=== PATIENT | female | born 1950 | race Caucasian/White ===

== ENCOUNTER 2016-12-08 11:13 | Day surgery (SDC) | payer OTHER ==
[~2016-12-08] VITALS: Ht 156.2 cm; Wt 59.7 kg
[~2016-12-08 11:13] MED LIST: CHOL500045 PO; DENO120V SC; FOLI20CA PO; LEVO100T PO; LEVO500T11 PO; LIOT25TA10 PO; METF10002 PO; MULT-658 PO; ROSU5TAB PO; SPIR50TA PO; [UNRECOGNIZED DRUG - CODE] IV
[2016-12-08] MEDS ORDERED: LACTATED RINGERS 1,000 ML IV SCH (11:53)
[2016-12-08] MEDS ORDERED: ALPR-475 PO (11:57)
[2016-12-08] MEDS ORDERED: STEROID IV (11:57)
[2016-12-08] MEDS ORDERED: LIDOCAINE 1%, 2ML SQ PRN (12:00)
[2016-12-08] MEDS ORDERED: FENTANYL PF 100 MCG/2ML ONE ×2 (12:43)
[2016-12-08] MEDS ORDERED: MIDAZOLAM 1 MG/ML, 2ML ONE (12:43)
[2016-12-08] MEDS ORDERED: GLYCOPYRROLATE 0.2MG/1ML ONE (14:44)
[2016-12-08] MEDS ORDERED: SUCCINYLCHOLINE 20 MG/ML, 10ML ONE (14:44)
[2016-12-08] MEDS ORDERED: PROPOFOL 10 MG/ML, 20ML ONE (14:44)
[2016-12-08] MEDS ORDERED: NEOSTIGMINE 1 MG/ML, 10ML ONE (14:44)
[2016-12-08] MEDS ORDERED: CEFAZOLIN 1,000 MG ONE (14:44)
[2016-12-08] MEDS ORDERED: ONDANSETRON 2MG/ML, 2ML ONE (14:44)
[2016-12-08] MEDS ORDERED: ROCURONIUM 10 MG/ML ONE (14:44)
[2016-12-08] MEDS ORDERED: DEXAMETHASONE 4 MG/ML, 1ML ONE (14:44)
[2016-12-08] MEDS ORDERED: BUPIVACAINE/PF 0.25% INFIL ONE (15:21)
[2016-12-08] MEDS ORDERED: EPINEPHRINE 1 MG/ML, 1ML INFIL ONE (15:22)
[2016-12-08] MEDS ORDERED: ACETAMINOPHEN 325 MG TABLET PO PRN (15:30)
[2016-12-08] MEDS ORDERED: morphine SULFATE 10 MG/ML, 1ML IV PRN (15:30)
[2016-12-08] MEDS ORDERED: OXYcodone 5 MG/5 ML ORAL.SOL UDC PO PRN (15:30)
[2016-12-08] MEDS ORDERED: FENTANYL PF 100 MCG/2ML IV PRN (15:30)
[2016-12-08] MEDS ORDERED: PROMETHAZINE 25 MG/ML, 1ML IV PRN (15:30)
[2016-12-08] MEDS ORDERED: MEPERIDINE/PF 25MG/0.5ML ONE (15:57)
[2016-12-08] MEDS ORDERED: OXYcodone 5 MG/5 ML ORAL.SOL UDC ONE (15:57)
[2016-12-08] MEDS ORDERED: EPINEPHRINE 1 MG/ML, 1ML ONE (15:59)
[2016-12-08] MEDS ORDERED: BUPIVACAINE/PF 0.25% ONE (15:59)
[2016-12-08] MEDS: MEPERIDINE/PF 25MG/0.5ML IVPush PRN ×2 (16:00→16:23)
[2016-12-08] MEDS ORDERED: KETOROLAC 30 MG/1 ML ONE (16:21)
[2016-12-08] MEDS ORDERED: KETOROLAC 30 MG/1 ML IVPush ONE (16:30)
[2016-12-08] MEDS ORDERED: MORPHINE SULFATE 4 MG/ML, 1ML ONE (16:44)
== END 2016-12-08 18:40 | disposition home or self-care (01) ==
LOC: OUT 11:13
PROVIDERS: ATTEND Specialist
DX: C50.911 Malignant neoplasm of unspecified site of right female breast (principal); C78.6 Secondary malignant neoplasm of retroperitoneum and peritoneum; R18.0 Malignant ascites
CPT/HCPCS: 36415; 49321; 49322; 86850; 86900; 86923; 88112; 88305; C1729; J0171; J0330; J0690; J1100; J1885; J2175; J2250; J2270; J2405; J2704; J2710; J3010; J3490; J7120